=== PATIENT | female | born 1985 | race Asian ===

== ENCOUNTER 2018-03-24 13:42 | Emergency (ER) | payer OTHER ==
[~2018-03-24] VITALS: Ht 152.4 cm; Wt 60.8 kg
[2018-03-24 14:21] LABS: ABSOLUTE BASOPHIL COUNT 0 /CUMM (0.0-0.2); ABSOLUTE EOSINOPHIL COUNT 0.1 /CUMM (0.0-0.7); ABSOLUTE GRANULOCYTE CT 7.2 /CUMM (1.4-6.5); ABSOLUTE LYMPH COUNT 3.5 /CUMM (1.2-3.4); ABSOLUTE MONOCYTE COUNT 0.6 /CUMM (0.10-0.60); BASOPHIL % 0.4 % (0.0-2.0); EOSINOPHIL % 0.9 % (0-5); GRANULOCYTE % 62.8 % (42.2-75.2); HEMATOCRIT 46.9 % (37-47); MEAN CORPUSCULAR HGB 30.8 PG (27.0-31.0); MEAN CORPUSCULAR HGB CONC 34.1 G/DL (33.0-37.0); MEAN CORPUSCULAR VOLUME 90.3 FL (81.0-99.0); MEAN PLATELET VOLUME 9.9 FL (7.4-10.4); PLATELET COUNT 263 /CUMM (130-400); RBC DISTRIBUTION WIDTH 13.4 % (11.5-14.5); WHITE BLOOD CELL COUNT 11.5 /CUMM (4.8-10.8)
[2018-03-24] MEDS ORDERED: JUNEL FE 1 MG-1 EACH PO (15:27)
--- NOTE | 2018-03-24 15:32 | ED GENERAL ADULT ---
History of Present Illness General Chief Complaint: Abdominal Pain/Flank Pain Stated Complaint: SENT BY URGENT CARE FOR EVAL OF ABD PAIN Source: patient Exam Limitations: no limitations Vital Signs & Intake/Output Vital Signs & Intake/Output Vital Signs Date Time Temp Pulse Resp B/P B/P Pulse O2 O2 Flow FiO2 Mean Ox Delivery Rate 03/24 1711 97.3 78 18 141/89 100 Room Air 03/24 1346 96.4 91 18 170/125 97 Room Air Room Air Allergies Coded Allergies: No Known Allergies (03/24/18) Reconcile Medications Norethindrone-E.estradiol-Iron (Junel Fe 1 MG-20 Mcg Tablet) 1 MG-20 MCG (21)/75 MG (7) TABLET 1 TAB PO DAILY CONTROL (Reported) Triage Note: TRIAGE: 32 Y/O FEMALE SENT IN FROM URGENT CARE - C/O SQUEEZING ABDOMINAL PAIN X DAYS. Triage Nurses Notes Reviewed? yes : No Patient currently breastfeeds: No HPI: 32-year-old female presents with upper abdominal pain for the past 3 days. She reports the pain causes her to not be able to sleep comfortably. She denies nausea, vomiting or diarrhea. She denies similar pain in the past. Past History Travel History Traveled to [place] past 21 day No Medical History Any Pertinent Medical History? none Neurological: NONE EENT: NONE Cardiovascular: NONE Respiratory: NONE Gastrointestinal: NONE Hepatic: NONE Renal: NONE Musculoskeletal: NONE Psychiatric: NONE Endocrine: NONE Blood Disorders: NONE Cancer(s): NONE SUPPORT GROUP MANAGER/Reproductive: NONE Surgical History Surgical History: none Psychosocial History What is your primary language Monegasque Tobacco Use: Current Daily Use Daily Tobacco Use Amount/Type: => 5 Cigarettes daily ETOH Use: denies use Illicit Drug Use: denies illicit drug use Family History Hx Contributory? No Review of Systems Review of Systems Constitutional: Denies: chills, diaphoresis, fever. EENTM: Denies: blurred vision, double vision, visual changes. Respiratory: Denies: cough, hemoptysis, orthopnea. Cardiovascular: Denies: chest pain, edema, orthopena. GI: Reports: abdominal pain. Denies: diarrhea, nausea, vomiting. Genitourinary: Denies: discharge, dysuria, frequency. Musculoskeletal: Denies: back pain. Skin: Denies: cysts, change in skin color, change in hair/nails. Neurological/Psychological: Denies: anxiety, ataxia, cognitive dysfunction. Physical Exam Physical Exam General Appearance: well developed/nourished, no apparent distress Head: atraumatic, normal appearance Eyes: Bilateral: PERRL, EOMI. Ears, Nose, Throat: normal pharynx, normal ENT inspection Neck: normal inspection, supple Respiratory: normal breath sounds, chest non-tender Cardiovascular: regular rate/rhythm, edema Gastrointestinal: normal bowel sounds, soft, see below Back: normal inspection, normal range of motion Extremities: normal inspection, normal capillary refill Neurologic/Psych: awake, alert, oriented x 3 Skin: intact, normal color, warm/dry Comments: Soft abdomen with epigastric tenderness without right upper quadrant tenderness or Perez sign. Core Measures ACS in differential dx? No CVA/TIA Diagnosis: No Sepsis Present: No Sepsis Focused Exam Completed? No Progress Differential Diagnoses 32-year-old female comes in with upper abdominal pain. Pending labs and CT scan. Plan of Care: Orders Procedure Date/time Status TROPONIN LEVEL 03/24 1358 Complete EKG 03/24 1346 Active URINALYSIS 03/24 1345 Complete LIPASE 03/24 1345 Complete HUMAN BETA HCG SCREEN 03/24 1345 Complete COMPREHENSIVE METABOLIC PANEL 03/24 1345 Complete CBC WITHOUT DIFFERENTIAL 03/24 1345 Complete AMYLASE 03/24 1345 Complete Laboratory Tests 03/24/18 1545: Urine Color YEL, Urine Clarity CLEAR, Urine pH 6.0, Ur Specific Rogers <= 1.005 , Urine Protein NEG, Urine Ketones TRACE H, Urine Nitrite NEG, Urine Bilirubin NEG, Urine Urobilinogen 0.2, Ur Leukocyte Esterase TRACE H, Ur Microscopic SEDIMENT EXAMINED, Urine WBC 3-5 H, Ur Epithelial Cells FEW, Urine Bacteria FEW H, Urine Hemoglobin NEG, Urine Glucose NEG 03/24/18 1358: Anion Gap 14, Estimated GFR > 60, BUN/Creatinine Ratio 26.7 H, Glucose 81, Calcium 10.0, Total Bilirubin 0.5, AST 31, ALT 31, Alkaline Phosphatase 47, Troponin I < 0.01, Total Protein 8.0, Albumin 4.9, Globulin 3.1, Albumin/ Globulin Ratio 1.6, Amylase 46, Lipase 31, Total Beta HCG NEGATIVE, CBC w Diff NO MAN DIFF REQ, RBC 5.20, MCV 90.3, MCH 30.8, MCHC 34.1, RDW 13.4, MPV 9.9, Gran % 62.8, Lymphocytes % 30.3, Monocytes % 5.6, Eosinophils % 0.9, Basophils % 0.4, Absolute Granulocytes 7.2 H, Absolute Lymphocytes 3.5 H, Absolute Monocytes 0.6, Absolute Eosinophils 0.1, Absolute Basophils 0 03/24/18 1346: Troponin I Cancelled Initial ED EKG: none Comments: [address] Duggan, patients SUPPORT GROUP MANAGER. Discussed the patient's presentation and results. He agrees with an outpatient follow-up. The patient's pain is in the upper abdomen not consistent with the ovarian cyst seen on the workup. Otherwise the patient's workup is negative. Plan will be for pain control, treatment of gastritis and outpatient follow-up with PCP and SUPPORT GROUP MANAGER. Emergency room return warnings given. No history of GI bleed. 1853 the patient feels better now. She had some nausea and vomiting after the GI cocktail. Abdomen remains soft and benign, abdominal warnings given. Departure Departure Time of Disposition: 1829 Disposition: HOME OR SELF CARE Condition: Stable Clinical Impression Primary Impression: Gastritis Secondary Impressions: Ovarian cyst Referrals: Patient Has No Primary Care Dr (PCP/Family) Additional Instructions: Watch for any signs of torsion like we have discussed, recurrent immediately if there is any significant pain in the abdomen. Return for any new or concerning symptoms. Departure Forms: Customer Survey General Discharge Information Critical Care Note Critical Care Note Critical Care Time: non-applicable
--- NOTE | 2018-03-24 15:37 | CT SCAN REPORT ---
EXAMINATION: CT ABDOMEN AND PELVIS WITH CONTRAST CLINICAL INFORMATION: Epigastric pain for 2 weeks. COMPARISON: None TECHNIQUE: Multidetector volumetric imaging was performed of the abdomen and pelvis following IV administration of 94 mL of Optiray 320 intravenous contrast. Sagittal and coronal reformatted images were obtained on the technologist's workstation. DLP: 265 mGy-cm FINDINGS: LUNG BASES: The visualized lung bases are unremarkable. LIVER, GALLBLADDER, AND BILIARY TREE: The liver is normal in size, shape, and attenuation. No focal hepatic lesion or biliary ductal dilatation is present. The gallbladder is unremarkable with no evidence of radiopaque gallstones, gallbladder wall thickening, or obvious pericholecystic inflammatory changes. PANCREAS: Unremarkable. SPLEEN: Unremarkable. ADRENAL GLANDS: Unremarkable. KIDNEYS AND URETERS: Bilateral nephrograms are symmetric without hydronephrosis. In the posterior mid right kidney, there is a 1.8 cm circumscribed hypodense lesion which measures approximately 80 Hounsfield units. No renal or ureteral calculi. BLADDER: Unremarkable. GASTROINTESTINAL TRACT: Bowel gas pattern is nonobstructive. No evidence of acute bowel inflammation. The appendix is normal. Suspect a short segment of peristalsis narrowing the colonic lumen at the junction of the descending and sigmoid colon. ABDOMINAL WALL: No significant hernia is appreciated. LYMPH NODES: No bulky adenopathy. VASCULAR: Unremarkable. PELVIC VISCERA: No free pelvic fluid. In the mid pelvis associated with the right ovary, there is a 5.9 x 5.1 cm rounded lesion which contains central soft tissue and fat, consistent with an ovarian dermoid. The uterus is unremarkable. OSSEOUS STRUCTURES: No acute osseous abnormalities. Grade 1 anterolisthesis of L4 on L5. Lower lumbar facet arthropathy. IMPRESSION: 1. No acute intra-abdominal or intrapelvic pathology demonstrated. 2. An indeterminate 1.8 cm right renal lesion measuring greater than simple fluid density. Recommend nonemergent renal ultrasound to evaluate for a cystic versus solid nature. 3. A 5.9 x 5.1 cm presumed right ovarian dermoid. Consider nonemergent MAINTENANCE REPAIRER consultation.
--- NOTE | 2018-03-24 16:44 | ULTRASOUND REPORT ---
EXAMINATION: US ABDOMEN LIMITED CLINICAL INFORMATION: Epigastric pain for 3 days.. COMPARISON: CT scan earlier today. TECHNIQUE: Real-time imaging of the right upper quadrant abdominal viscera. FINDINGS: PANCREAS: Visualized portions of the pancreas are unremarkable, with partial bowel gas obscuration of the pancreatic tail. LIVER: Normal. The liver demonstrates normal size, contour and echogenicity. No focal lesion or intrahepatic biliary duct dilatation. GALLBLADDER: Normal. The gallbladder is physiologically distended without evidence of stones, sludge, polyps, wall thickening or pericholecystic fluid. COMMON BILE DUCT: Normal in caliber measuring 0.2 cm in diameter. RIGHT KIDNEY: There is a 1.9 cm cyst in the mid to upper right kidney, favor Bosniak 2 when correlating to the earlier CT scan. No hydronephrosis. No renal calculi or focal parenchymal lesions. The kidney measures 10.7 cm in maximum dimension. FREE FLUID: None. IMPRESSION: 1. No acute intra-abdominal abnormalities. 2. Suspected Bosniak 2 cyst in the right kidney when compared to earlier CT scan.
--- NOTE | 2018-03-24 17:21 | ULTRASOUND REPORT ---
EXAMINATION: US PELVIS COMPLETE US PELVIS ENDOVAGINAL WITH DOPPLER CLINICAL INFORMATION: Abdominal pain. Abnormal CT scan. COMPARISON: CT 03/24/2018, earlier the same day TECHNIQUE: Transabdominal and transvaginal images of the pelvis were obtained. Color and spectral Doppler evaluation of the ovaries was performed. FINDINGS: UTERUS: Anteverted. Normal size and contour, measuring 7.9 x 3.6 x 4.1 cm (cervix to fundus x AP x transverse). 76 cc volume. Uniform, homogeneous endometrium measures 0.8 cm in width. The cervical length is 2.7 cm. RIGHT OVARY: Corresponding to the abnormality seen on the ultrasound, there is a heterogeneous hyperechoic well-circumscribed right adnexal mass measuring 6.7 x 3.7 x 5.7 cm. Small amount of normal-appearing right ovarian tissue is seen peripherally with physiologic follicular cysts. This measures 2.4 x 1.0 x 1.1, 1.4 cc volume. Normal arterial and venous spectral Doppler waveforms are identified internally. LEFT OVARY: Normal size and echogenicity measuring 2.8 x 1.9 x 2.4 cm. 6.7 cc volume. Normal arterial and venous spectral Doppler waveforms are identified. FREE FLUID: No pelvic free fluid. IMPRESSION: 6.7 x 3.7 x 5.7 cm well-circumscribed heterogeneously hyperechoic right adnexal mass is seen corresponding to the abnormality on the prior CT scan. Although the ultrasound appearance is nonspecific, the demonstration of internal fat on the prior CT scan is characteristic of a ovarian dermoid cyst (mature cystic teratoma). Normal arterial and venous spectral Doppler waveforms are identified within the normal peripheral right ovarian tissue, strong evidence against active ovarian torsion at the time of the scan. Nonetheless, given the lesion's size, nonemergent gynecologic consultation is recommended.
[2018-03-24] MEDS ORDERED: ZOFRAN4 M2 PO (19:10)
[2018-03-24] MEDS ORDERED: NORCO 5-325 TA1 EACH PO (19:10)
[2018-03-24] MEDS ORDERED: ZANTAC150 M1 PO (19:10)
[2018-03-24] MEDS ORDERED: PANTOPRAZOLE SO40 M1 PO (19:10)
[2018-03-24 19:25] VITALS: BP 143/98
== END 2018-03-24 19:30 ==
LOC: ERH 13:42
PROVIDERS: Physician Assistant Medical
DX: K29.70 Gastritis, unspecified, without bleeding (principal); N83.201 Unspecified ovarian cyst, right side
CPT/HCPCS: 74177; 81001; 93005; 93010; 96374; 96375; J1885; J2405